=== PATIENT | female | born 1965 | race Caucasian/White ===

== ENCOUNTER 2018-08-05 07:16 | Day surgery (SDC) | payer OTHER ==
[2018-08-05] MEDS ORDERED: SIMETHICONE 40 MG/0.6 ML ML ONE (07:34)
[2018-08-05] MEDS ORDERED: MIDAZOLAM HCL 5 MG/5 ML VIAL ONE (07:34)
[2018-08-05] MEDS ORDERED: fentaNYL CITRATE/PF 100 MCG/2 ML AMP ONE (07:34)
[2018-08-05 09:38] VITALS: BP_SYST 126
== END 2018-08-05 10:10 | disposition home or self-care (01) ==
LOC: SDS 07:16 → SMU 08:34 → SDS 10:10
PROVIDERS: ATTEND Surgery
DX: K57.30 Diverticulosis of large intestine without perforation or abscess without bleeding (principal); K64.8 Other hemorrhoids; E66.9 Obesity, unspecified; K21.9 Gastro-esophageal reflux disease without esophagitis; Z98.890 Other specified postprocedural states
CPT/HCPCS: 45378; J2250; J3010; J7030